=== PATIENT | female | born 1940 | race Caucasian/White ===

== ENCOUNTER → 2017-07-10 13:55 | Outpatient (CLI) | payer OTHER, SELFPAY ==
[2017-07-10 14:39] LABS: Add Manual Diff / Slide Review NO; Basophils Percent Auto 0.7 % (0-2); Eosinophils Percent Auto 0.8 % (2-4); Hematocrit 37.8 % (36-46); Hemoglobin 12.6 g/dL (12.0-16.0); Lymphocytes Percent Auto 25.9 % (25-40); Mean Corpuscular HGB Conc 33.3 % (30-36); Mean Corpuscular Hemoglobin 27.7 PG (26-34); Mean Corpuscular Volume 83.2 fL (80-100); Monocytes Percent Auto 11.3 % (3-14); Neutrophils Absolute Auto 5800 /uL (3000-5900); Neutrophils Percent Auto 61.3 % (50-75); Platelet Count 300 X10^3/uL (150-400); Red Blood Cell Count 4.55 X10^6/uL (4.0-5.2); Red Cell Distribution Width 13.7 % (11.6-14.8); White Blood Cell Count 9.4 X10^3/uL (4.5-11.0)
[2017-07-10 15:03] LABS: Alanine Aminotransferase 34 IU/L (9-52); Albumin 4.3 g/dL (3.5-5.0); Albumin Globulin Ratio 1.3 (1.0-2.8); Alkaline Phosphatase 55 U/L (38-126); Aspartate Aminotransferase 26 IU/L (14-36); BUN Creatinine Ratio 27.1 (6-22); Bilirubin Direct 0.3 mg/dL (0.0-0.4); Bilirubin Total 0.3 mg/dL (0.2-1.3); Calcium 9.4 mg/dL (8.4-10.2); Estimated Glomerular Filt Rate > 60.0 mL/min (>60); Globulin 3.3 g/dL (1.7-4.1); Glucose 115 mg/dL (80-110); HEMOLYSIS < 15 (0-50); Sodium 139 mmol/L (137-145); Total Protein 7.6 g/dL (6.3-8.2)
[2017-07-10 15:40] LABS: TSH w/ Reflex to FT4 0.98 uIU/mL (0.47-4.68)
[2017-07-12 16:43] LABS: Immunoglobulin A 174 mg/dL (81-463)
[2017-07-15 15:30] LABS: Result 5
== END ==
PROVIDERS: PCP Internal Medicine; Visit Provider Physician Assistant
DX: R19.7 Diarrhea, unspecified (principal)
CPT/HCPCS: 36415; 80053; 82248; 82784; 83516; 84443; 85025

== ENCOUNTER → 2017-09-05 14:38 | Outpatient (CLI) | payer OTHER, SELFPAY ==
--- NOTE | 2017-09-05 | DI.MG.S_ITS ---
BILATERAL DIGITAL SCREENING MAMMOGRAM 3D/2D WITH CAD: 09/05/2017 CLINICAL: Routine screening. Family history of breast cancer. Comparison is made to exams dated: 08/05/2016 mammogram, 07/14/2015 mammogram, and 07/11/2014 mammogram - [facility]. There are scattered fibroglandular elements in both breasts. Current study was also evaluated with a Computer Aided Detection (CAD) system. There is architectural distortion in the right breast anterior depth central to the nipple seen on the mediolateral oblique view only. No other significant masses, calcifications, or other findings are seen in either breast. IMPRESSION: INCOMPLETE: NEEDS ADDITIONAL IMAGING EVALUATION The architectural distortion in the right breast is indeterminate. Additional views with possible ultrasound are recommended. This exam was interpreted at Station ID: [id number]. NOTE: For mammograms, a report in lay terms will be sent to the patient. Approximately 15% of breast malignancies will not be visualized mammographically. In the management of a palpable breast mass, a negative mammogram must not discourage biopsy of a clinically suspicious lesion. Electronically Signed By: Tereso neal/michael:09/05/2017 16:00:59 copy to: Valarie Cantor letter sent: Additional Imaging Needed ACR BI-RADS Category 0: Incomplete 3340F
== END ==
PROVIDERS: PCP Internal Medicine; Visit Provider Internal Medicine
DX: Z12.31 Encounter for screening mammogram for malignant neoplasm of breast (principal); Z80.3 Family history of malignant neoplasm of breast
CPT/HCPCS: 77063; 77067

== ENCOUNTER → 2017-09-12 10:29 | Outpatient (CLI) | payer OTHER, SELFPAY ==
--- NOTE | 2017-09-12 | DI.MG.S_ITS ---
UNILATERAL RIGHT DIGITAL DIAGNOSTIC MAMMOGRAM 3D/2D WITH ADDITIONAL VIEWS: 09/12/2017 CLINICAL: Additional evaluation requested from prior study. Comparison is made to exams dated: 09/05/2017 mammogram, 08/05/2016 mammogram, and 07/14/2015 mammogram - [facility]. There are scattered fibroglandular elements in the right breast. The architectural distortion in the right breast anterior depth central to the nipple seen on the mediolateral oblique view only is not seen in additional views. No other significant masses or calcifications are seen in the breast. IMPRESSION: BENIGN There is no mammographic evidence of malignancy. A 1 year screening mammogram is recommended. This exam was interpreted at Station ID: [id number]. NOTE: For mammograms, a report in lay terms will be sent to the patient. Approximately 15% of breast malignancies will not be visualized mammographically. In the management of a palpable breast mass, a negative mammogram must not discourage biopsy of a clinically suspicious lesion. Electronically Signed By: Kellie Crowe M.D. lk/:09/12/2017 10:50:45 copy to: Valarie Cantor letter sent: Normal Exam ACR BI-RADS Category 2: Benign Finding(s) 3342F
== END ==
PROVIDERS: Family Provider Internal Medicine; PCP Internal Medicine; Visit Provider Internal Medicine
DX: R92.8 Other abnormal and inconclusive findings on diagnostic imaging of breast (principal)
CPT/HCPCS: 77065; G0279

== ENCOUNTER → 2017-10-06 09:03 | Outpatient (CLI) | payer OTHER, SELFPAY ==
[2017-10-06 11:00] LABS: Free T4, Direct Thyroxine 0.83 ng/dL (0.78-2.19)
[2017-10-06 11:14] LABS: Thyroid Stimulating Hormone 0.51 uIU/mL (0.47-4.68)
[2017-10-08 16:22] LABS: Triiodothyronine T3 Total 92 ng/dL (76-181)
== END ==
PROVIDERS: Family Provider Internal Medicine; PCP Internal Medicine; Visit Provider Internal Medicine
DX: E06.3 Autoimmune thyroiditis (principal)
CPT/HCPCS: 36415; 84439; 84443; 84480

== ENCOUNTER → 2017-10-13 13:17 | Outpatient (CLI) | payer OTHER, SELFPAY ==
--- NOTE | 2017-10-13 | DI.MRI.S_ITS ---
PROCEDURE: MR BRAIN (IAC) WWO CON INDICATIONS: IAC bilateral hearing loss, right greater than left TECHNIQUE: Noncontrast sagittal T1 spin echo, axial FLAIR, axial gradient echo, axial diffusion and ADC through the brain. Axial thin-slice 3D CISS, coronal TruFISP, axial T1 spin echo with fat saturation through the internal auditory canals. After the administration of contrast, thin slice axial and coronal T1 spin echo with fat saturation through the internal auditory canals, and axial T1 spin echo with fat saturation through the brain. COMPARISON: None. FINDINGS: Image quality: Excellent. Cerebellopontine angles: No cerebellopontine angle masses. Inner ear structures appear normally formed. No suspicious enhancement in the internal auditory canal or along the course of the 7th cranial nerve. CSF spaces: Ventricles are normal in size and shape. No extra-axial fluid collections. Basal cisterns are patent. Brain: No intracranial bleeds or mass effects. Almaguer-white matter interface is intact. No abnormal intracranial enhancement. Scattered bright flair signal changes are present in the deep white matter bilaterally. Diffusion weighted images demonstrate no acute ischemic insults. Brainstem appears normal. Normal intravascular flow voids are present. Skull and face: Calvarial marrow signal is normal. Orbits appear normal. Sinuses: Sinuses and mastoids are clear. IMPRESSION: 1. No evidence of acoustic neurinomas 2. No acute intracranial abnormality. No abnormal enhancement. 3. Mild age related small vessel chronic ischemic changes in the deep white matter bilaterally. Dictated by: Don Julian M.D. on 10/13/2017 at 16:54 Approved by: Don Julian M.D. on 10/13/2017 at 17:01
[2017-10-13 14:00] LABS: BUN Creatinine Ratio 24.4 (6-22); Blood Urea Nitrogen 22 mg/dL (7-17); Estimated Glomerular Filt Rate > 60.0 mL/min (>60)
== END ==
PROVIDERS: Family Provider Internal Medicine; PCP Internal Medicine; Visit Provider Otolaryngology
DX: H90.3 Sensorineural hearing loss, bilateral (principal); Z01.812 Encounter for preprocedural laboratory examination; H61.899 Other specified disorders of external ear, unspecified ear
CPT/HCPCS: 36415; 70553; 82565; 84520; A9579

== ENCOUNTER → 2018-07-16 07:54 | Outpatient (CLI) | payer OTHER, SELFPAY ==
--- NOTE | 2018-07-16 | DI.RAD.S_ITS ---
PROCEDURE: XR CHEST 2V INDICATIONS: COUGH TECHNIQUE: 2 views of the chest were acquired. COMPARISON: [facility], , CHEST 2 VIEW, 06/14/2014, 11:52. FINDINGS: Surgical changes and devices: None. Lungs and pleura: Lungs are clear. No pleural effusions or pneumothorax. Mediastinum: Mediastinal contours are normal. Heart size is normal. Bones and chest wall: No suspicious bony abnormalities. Soft tissues appear unremarkable. IMPRESSION: No acute cardiopulmonary pathology. Dictated by: Emmett Sarah M.D. on 07/16/2018 at 13:28 Approved by: Emmett Sarah M.D. on 07/16/2018 at 13:28
[2018-07-16 08:24] LABS: Add Manual Diff / Slide Review NO; Basophils Absolute Auto 100 /uL (0-100); Basophils Percent Auto 0.8 % (0-2); Eosinophils Absolute Auto 200 /uL (0-450); Eosinophils Percent Auto 2.8 % (2-4); Hematocrit 39.4 % (36-46); Hemoglobin 13.4 g/dL (12.0-16.0); Lymphocytes Absolute Auto 2200 /uL (1100-4500); Lymphocytes Percent Auto 27.5 % (25-40); Mean Corpuscular Hemoglobin 28.8 PG (26-34); Mean Corpuscular Volume 84.5 fL (80-100); Monocytes Absolute Auto 1100 /uL (0-900); Monocytes Percent Auto 14.3 % (3-14); Neutrophils Absolute Auto 4300 /uL (1500-7000); Neutrophils Percent Auto 54.6 % (50-75); Platelet Count 250 X10^3/uL (150-400); Red Blood Cell Count 4.67 X10^6/uL (4.0-5.2); Red Cell Distribution Width 13.3 % (11.6-14.8); White Blood Cell Count 7.8 X10^3/uL (4.5-11.0)
[2018-07-16 08:43] LABS: Alanine Aminotransferase 26 IU/L (9-52); Aspartate Aminotransferase 27 IU/L (14-36); Blood Urea Nitrogen 20 mg/dL (7-17); Calcium 9.5 mg/dL (8.4-10.2); Carbon Dioxide 29 mmol/L (22-32); Chloride 101 mmol/L (98-107); Cholesterol 183 mg/dL (140-199); Estimated Glomerular Filt Rate > 60.0 mL/min (>60); Glucose 100 mg/dL (80-110); HDL Cholesterol 58 mg/dL (40-60); HEMOLYSIS < 15 (0-50); LDL Cholesterol Calculated 111 mg/dL (<100); Potassium 4.4 mmol/L (3.4-5.1); Sodium 139 mmol/L (137-145); Triglycerides 69 mg/dL (35-150)
[2018-07-16 09:12] LABS: TSH w/ Reflex to FT4 1.11 uIU/mL (0.47-4.68)
[2018-07-16 09:57] LABS: Vitamin B12 712 pg/mL (239-931)
== END ==
PROVIDERS: PCP Internal Medicine; Visit Provider Internal Medicine
DX: E78.00 Pure hypercholesterolemia, unspecified (principal); R53.82 Chronic fatigue, unspecified; R05 Cough
CPT/HCPCS: 36415; 71046; 80048; 80061; 82607; 84443; 84450; 84460; 85025

== ENCOUNTER → 2018-07-22 13:34 | Outpatient (CLI) | payer OTHER, SELFPAY | PROVIDERS: PCP Internal Medicine; Visit Provider Internal Medicine | DX: M85.852 Other specified disorders of bone density and structure, left thigh (principal); Z78.0 Asymptomatic menopausal state; E07.9 Disorder of thyroid, unspecified; Z82.62 Family history of osteoporosis | CPT/HCPCS: 77080 ==

== ENCOUNTER → 2018-09-17 08:33 | Outpatient (CLI) | payer OTHER, SELFPAY ==
--- NOTE | 2018-09-17 | DI.MG.S_ITS ---
BILATERAL DIGITAL SCREENING MAMMOGRAM 3D/2D WITH CAD: 09/17/2018 CLINICAL: Routine screening. Family history of breast cancer. Comparison is made to exams dated: 09/05/2017 mammogram, 08/05/2016 mammogram, 07/14/2015 mammogram, 09/12/2017 mammogram, 07/11/2014 mammogram, and 07/09/2013 mammogram - [facility]. The tissue of both breasts is heterogeneously dense. This may lower the sensitivity of mammography. Current study was also evaluated with a Computer Aided Detection (CAD) system. There are benign calcifications in the right breast. There is a mole marker on the left breast. No significant masses, calcifications, or other findings are seen in either breast. There has been no significant interval change. IMPRESSION: There is no mammographic evidence of malignancy. A 1 year screening mammogram is recommended. This exam was interpreted at Station ID: [id number]. NOTE: For mammograms, a report in lay terms will be sent to the patient. Approximately 15% of breast malignancies will not be visualized mammographically. In the management of a palpable breast mass, a negative mammogram must not discourage biopsy of a clinically suspicious lesion. Electronically Signed By: Fredrick castano/michael:09/17/2018 12:58:52 copy to: Darrel Payan letter sent: Normal Exam ACR BI-RADS Category 2: Benign Finding(s) 3342F
== END ==
PROVIDERS: PCP Internal Medicine; Visit Provider Internal Medicine
DX: Z12.31 Encounter for screening mammogram for malignant neoplasm of breast (principal); Z80.3 Family history of malignant neoplasm of breast
CPT/HCPCS: 77063; 77067

== ENCOUNTER → 2018-11-26 14:08 | Outpatient (CLI) | payer OTHER, SELFPAY ==
[2018-11-26 15:44] LABS: Free T4, Direct Thyroxine 0.93 ng/dL (0.78-2.19)
[2018-11-26 15:58] LABS: Thyroid Stimulating Hormone 0.68 uIU/mL (0.47-4.68)
[2018-11-28 15:34] LABS: Triiodothyronine T3 Total 162 ng/dL (76-181)
== END ==
PROVIDERS: PCP Internal Medicine; Visit Provider Internal Medicine
DX: E06.3 Autoimmune thyroiditis (principal)
CPT/HCPCS: 36415; 84439; 84443; 84480

== ENCOUNTER → 2019-05-14 15:04 | Outpatient (CLI) | payer OTHER, SELFPAY ==
[2019-05-14 16:22] LABS: Free T4, Direct Thyroxine 0.86 ng/dL (0.78-2.19)
[2019-05-15 06:29] LABS: Triiodothyronine T3 Total 150 ng/dL (71-180)
== END ==
PROVIDERS: PCP Internal Medicine; Referring Provider Internal Medicine; Visit Provider Internal Medicine
DX: E06.3 Autoimmune thyroiditis (principal)
CPT/HCPCS: 36415; 84439; 84443; 84480

== ENCOUNTER → 2019-08-12 08:14 | Outpatient (CLI) | payer OTHER, SELFPAY ==
--- NOTE | 2019-08-12 | DI.RAD.S_ITS ---
PROCEDURE: XR THORACIC SPINE 2V INDICATIONS: Kyphosis of thoracic region TECHNIQUE: A 3 views of the thoracic spine were acquired. COMPARISON: None. FINDINGS: Bones: No fractures or dislocations. Multiple small bridging osteophytes are seen along the thoracic spine with additional mild anterior longitudinal ligament calcifications. The morphology of the vertebral bodies is not suggestive of superimposed definite ankylosing spondylitis and no compression fracture is found. No suspicious bony lesions. 12 pairs of ribs are noted, and appear intact where visualized. Soft tissues: No paravertebral stripe thickening. IMPRESSION: No compression fracture found. Multiple small bridging osteophytes. DISH pattern, ankylosing spondylitis is not likely present. Dictated by: Gregory Wright M.D. on 08/12/2019 at 8:57 Approved by: Gregory Wright M.D. on 08/12/2019 at 8:59
== END ==
PROVIDERS: PCP Internal Medicine; Referring Provider Internal Medicine; Visit Provider Internal Medicine
DX: M40.204 Unspecified kyphosis, thoracic region (principal)
CPT/HCPCS: 72070

== ENCOUNTER → 2019-08-16 07:33 | Outpatient (CLI) | payer OTHER, SELFPAY ==
[2019-08-16 09:22] LABS: Cholesterol 228 mg/dL (140-199); HDL Cholesterol 50 mg/dL (40-60); LDL Cholesterol Calculated 151 mg/dL (<100); Triglycerides 137 mg/dL (35-150)
[2019-08-16 19:57] LABS: Alanine Aminotransferase 19 IU/L (<35); Albumin 4.1 g/dL (3.5-5.0); Albumin Globulin Ratio 1.3 (1.0-2.8); Alkaline Phosphatase 58 U/L (38-126); Aspartate Aminotransferase 27 IU/L (14-36); BUN Creatinine Ratio 24.3 (6-22); Bilirubin Total 0.3 mg/dL (0.2-1.3); Blood Urea Nitrogen 18 mg/dL (7-17); Calcium 9.7 mg/dL (8.4-10.2); Carbon Dioxide 26 mmol/L (22-32); Chloride 103 mmol/L (98-107); Estimated Glomerular Filt Rate > 60.0 mL/min (>60); Globulin 3.1 g/dL (1.7-4.1); Glucose 97 mg/dL (80-110); HEMOLYSIS < 15 (0-50); Potassium 4.6 mmol/L (3.4-5.1); Sodium 137 mmol/L (137-145); Total Protein 7.2 g/dL (6.3-8.2)
== END ==
PROVIDERS: PCP Internal Medicine; Referring Provider Internal Medicine; Visit Provider Internal Medicine
DX: M85.80 Other specified disorders of bone density and structure, unspecified site (principal); E78.5 Hyperlipidemia, unspecified
CPT/HCPCS: 36415; 80053; 80061

== ENCOUNTER → 2019-10-06 11:56 | Outpatient (CLI) | payer OTHER, SELFPAY | PROVIDERS: PCP Internal Medicine; Referring Provider Internal Medicine; Visit Provider Internal Medicine | DX: Z12.31 Encounter for screening mammogram for malignant neoplasm of breast (principal); Z53.8 Procedure and treatment not carried out for other reasons ==

== ENCOUNTER → 2019-10-27 13:28 | Outpatient (CLI) | payer OTHER, SELFPAY ==
--- NOTE | 2019-10-27 13:44 | DI.MG.S_ITS ---
Patient Name: ERICA SOW date: 1940 Sex: F Attending Physician: Den Indications: Date: 10/27/2019 13:31 At the request of: SKYLA TOWNSEND Procedure: MM diagnostic mammo BI BILATERAL DIGITAL DIAGNOSTIC MAMMOGRAM 3D/2D: 10/27/2019 CLINICAL: Lump left breast. Comparison is made to exams dated: 09/17/2018 mammogram, 09/12/2017 mammogram, 09/05/2017 mammogram, and 08/05/2016 mammogram - [facility]. The tissue of both breasts is heterogeneously dense. This may lower the sensitivity of mammography. There is a possible 1.6 cm focal asymmetry in the left breast at 7 o'clock anterior depth which appears less conspicuous after spot compression on today's study. No other significant masses, calcifications, or other findings are seen in either breast. IMPRESSION: INCOMPLETE: NEEDS ADDITIONAL IMAGING EVALUATION The possible 1.6 cm focal asymmetry in the left breast resembles fibroglandular tissue and is indeterminate. An ultrasound is recommended for further evaluation and is scheduled to immediately follow this study. There is no abnormality seen in the left breast to correspond with the area of clinical concern and palpable abnormality indicated by triangular marker at 5 o'clock in the anterior depth, however, ultrasound is recommended which is scheduled to immediately follow this examination. This exam was interpreted at Station ID: [id number]. NOTE: For mammograms, a report in lay terms will be sent to the patient. Approximately 15% of breast malignancies will not be visualized mammographically. In the management of a palpable breast mass, a negative mammogram must not discourage biopsy of a clinically suspicious lesion. Electronically Signed By: Alex Martin M.D. aty/:10/27/2019 14:58:48 Continued Report - Page 2 of 2 Patient Name: ERICA SOW date: 1940 Sex: F Attending Physician: Den Indications: Date: 10/27/2019 13:31 At the request of: SKYAL TOWNSEND Procedure: MM diagnostic mammo BI ACR BI-RADS Category 0: Incomplete 3340F
--- NOTE | 2019-10-27 14:35 | DI.US.S_ITS ---
Patient Name: ERICA SOW date: 1940 Sex: F Attending Physician: Den Indications: Date: 10/27/2019 14:31 At the request of: SKYLA TOWNSEND Procedure: US breast LT limited ULTRASOUND OF LEFT BREAST: 10/27/2019 CLINICAL: Left breast palpable lump. Comparison is made to exams dated: 10/27/2019 mammogram, 09/17/2018 mammogram, 09/05/2017 mammogram, 08/05/2016 mammogram, 07/14/2015 mammogram, and 07/11/2014 mammogram - [facility]. Color flow and real-time ultrasound of the left breast were performed. Almaguer scale images of the real-time examination were reviewed. No significant abnormalities were seen sonographically in the left breast. IMPRESSION: BENIGN There is no sonographic evidence of malignancy. There is no abnormality seen in the left breast to correspond with the area of clinical concern and palpable abnormality indicated by triangular marker at 5 o'clock in the anterior depth, however, clinical followup is recommended for persistent or worsening symptoms. There is no sonographic abnormality in the left breast at the 7 o'clock position, middle depth to correlate with possible focal asymmetry seen on today's mammogram. This is likely normal dense fibroglandular tissue and probably benign. A follow up left breast mammogram with possible ultrasound in 6 months is recommended. Findings and recommendations were conveyed to the patient during today's visit. This exam was interpreted at Station ID: [id number]. Electronically Signed By: Alex Martin M.D. aty/:10/27/2019 15:03:16 letter sent: Followup Recommended Continued Report - Page 2 of 2 Patient Name: ERICA SOW date: 1940 Sex: F Attending Physician: Den Indications: Date: 10/27/2019 14:31 At the request of: SKYLA TOWNSEND Procedure: US breast LT limited Ultrasound BI-RADS: 2 Benign
== END ==
PROVIDERS: PCP Internal Medicine; Visit Provider Internal Medicine
DX: R92.8 Other abnormal and inconclusive findings on diagnostic imaging of breast (principal); N63.20 Unspecified lump in the left breast, unspecified quadrant
CPT/HCPCS: 76642; 77066; G0279

== ENCOUNTER → 2019-11-02 12:07 | Outpatient (CLI) | payer OTHER, SELFPAY ==
--- NOTE | 2019-11-02 | DI.MRI.S_ITS ---
PROCEDURE: MR HEAD/BRAIN WO CON INDICATIONS: Other amnesia TECHNIQUE: Non-contrast axial T1 spin echo, axial T2 fast spin echo, sagittal and axial FLAIR, coronal T2 fast spin echo, axial gradient echo, axial diffusion and ADC through the brain. COMPARISON: [facility], MR, MR BRAIN ([facility]) WWO CON, 10/13/2017, 15:11. FINDINGS: Image quality: Excellent. CSF spaces: Ventricles appear symmetric in size and shape. Basal cisterns are patent. No extra-axial fluid collections. Brain: No intracranial bleeds or mass effects. There is cerebral volume loss for age. There are periventricular and deep white matter chronic small vessel ischemic changes. Brainstem appears normal. Diffusion-weighted images show no acute ischemic insults. No chronic ischemic insults. Normal intravascular flow voids are present. Skull and face: Calvarial bone marrow is normal in signal. Orbits are normal. Note is made of bilateral lens replacements. Sinuses: Sinuses and mastoids are clear. Moderate rightward nasal septal deviation is incidentally noted. There is a left trae bullosa seen, with mucosal thickening seen within it. IMPRESSION: No imaging explanation is found for this patient's presenting symptoms. Note is made of age-appropriate brain parenchymal volume loss and chronic small vessel ischemic changes. No findings of acute or subacute infarction can be seen. Dictated by: Kelvin Reddy M.D. on 11/02/2019 at 11:49 Approved by: Kelvin Reddy M.D. on 11/02/2019 at 11:51
== END ==
PROVIDERS: PCP Internal Medicine; Referring Provider Internal Medicine; Visit Provider Internal Medicine
DX: R41.3 Other amnesia (principal)
CPT/HCPCS: 70551

== ENCOUNTER → 2019-12-15 10:18 | Outpatient (CLI) | payer OTHER, SELFPAY ==
[2019-12-15 12:05] LABS: Free T4, Direct Thyroxine 0.97 ng/dL (0.78-2.19)
[2019-12-15 12:18] LABS: Thyroid Stimulating Hormone 0.891 uIU/mL (0.47-4.68)
[2019-12-16 10:03] LABS: Triiodothyronine T3 Total 105 ng/dL (71-180)
== END ==
PROVIDERS: PCP Internal Medicine; Referring Provider Internal Medicine; Visit Provider Internal Medicine
DX: E06.3 Autoimmune thyroiditis (principal)
CPT/HCPCS: 36415; 84439; 84443; 84480

== ENCOUNTER → 2020-04-27 12:47 | Outpatient (CLI) | payer OTHER, SELFPAY ==
--- NOTE | 2020-04-27 12:51 | DI.MG.S_ITS ---
UNILATERAL LEFT DIGITAL DIAGNOSTIC MAMMOGRAM 3D/2D SHORT-TERM FOLLOW-UP: 04/27/2020 CLINICAL: Patient returns for a 6 month follow up of the left breast. Comparison is made to exams dated: 10/27/2019 mammogram, 09/17/2018 mammogram, and 09/05/2017 mammogram - [facility]. The tissue of left breast is heterogeneously dense. This may lower the sensitivity of mammography. No increasing asymmetry in the left breast at 5 o'clock in the anterior depth. This was location of previous palpable abnormality for the patient. There is a benign 1 cm oval low density asymmetry with an indistinct margin in the left breast at 7 o'clock middle depth. This is seen in additional views. This has been present for multiple years and has shown snf stability in size for over two years. No significant change in morphology. No other significant masses or calcifications are seen in the breast. IMPRESSION: BENIGN Asymmetry at 7:00 in the left breast is benign given emt intermediate stability. No developing asymmetry at 5:00. There is no mammographic evidence of malignancy. Return to annual mammogram screening schedule is recommended. Future imaging is recommended as follows: 10/24/2020 screening mammogram. Findings and recommendations were conveyed to the patient at time of exam. This exam was interpreted at Station ID: [id number]. NOTE: For mammograms, a report in lay terms will be sent to the patient. Approximately 15% of breast malignancies will not be visualized mammographically. In the management of a palpable breast mass, a negative mammogram must not discourage biopsy of a clinically suspicious lesion. Electronically Signed By: Toya buchanan/:04/27/2020 13:33:44 letter sent: Normal Exam ACR BI-RADS Category 2: Benign Finding(s) 3342F
== END ==
PROVIDERS: PCP Internal Medicine; Referring Provider Internal Medicine; Visit Provider Internal Medicine
DX: R92.8 Other abnormal and inconclusive findings on diagnostic imaging of breast (principal); N64.89 Other specified disorders of breast
CPT/HCPCS: 77065; G0279

== ENCOUNTER → 2020-11-06 10:47 | Outpatient (CLI) | payer OTHER, SELFPAY ==
[2020-11-06 12:47] LABS: COVID19 -Nasal RAPID Negative (Negative)
== END ==
PROVIDERS: PCP Internal Medicine; Referring Provider Nurse Practitioner Family; Visit Provider Nurse Practitioner Family
DX: R05 Cough (principal)
CPT/HCPCS: 87635

== ENCOUNTER → 2020-11-06 11:22 | Outpatient (CLI) | payer OTHER, SELFPAY ==
--- NOTE | 2020-11-06 11:24 | DI.RAD.S_ITS ---
PROCEDURE: XR CHEST 2V INDICATIONS: cough TECHNIQUE: 2 views of the chest were acquired. COMPARISON: [facility], CHEST 2 VIEW, 06/14/2014, 11:52. [facility], , XR CHEST 2V, 07/16/2018, 12:48. FINDINGS: Surgical changes and devices: None. Lungs and pleura: Lungs are clear. No pleural effusions or pneumothorax. Mediastinum: Mediastinal contours are normal. Heart size is normal. Bones and chest wall: No suspicious bony abnormalities. Accentuated thoracic kyphosis is seen. Soft tissues appear unremarkable. IMPRESSION: Unremarkable chest series for age, without focal infiltrates. Dictated by: Kelvin Reddy M.D. on 11/06/2020 at 10:52 Approved by: Kelvin Reddy M.D. on 11/06/2020 at 10:52
== END ==
PROVIDERS: PCP Internal Medicine; Referring Provider Nurse Practitioner Family; Visit Provider Nurse Practitioner Family
DX: R05 Cough (principal)
CPT/HCPCS: 71046; 87635

== ENCOUNTER → 2020-11-28 09:13 | Outpatient (CLI) | payer OTHER, SELFPAY ==
--- NOTE | 2020-11-28 | DI.MG.S_ITS ---
BILATERAL DIGITAL SCREENING MAMMOGRAM 3D/2D WITH CAD: 11/28/2020 CLINICAL: Routine screening. Family history of breast cancer. Comparison is made to exams dated: 04/27/2020 mammogram, 10/27/2019 mammogram, 09/17/2018 mammogram, 09/12/2017 mammogram, and 09/05/2017 mammogram - [facility]. The tissue of both breasts is heterogeneously dense. This may lower the sensitivity of mammography. Current study was also evaluated with a Computer Aided Detection (CAD) system. There are benign calcifications in both breasts. No significant masses, calcifications, or other findings are seen in either breast. There has been no significant interval change. IMPRESSION: BENIGN There is no mammographic evidence of malignancy. A 1 year screening mammogram is recommended. This exam was interpreted at Station ID: [id number]. NOTE: For mammograms, a report in lay terms will be sent to the patient. Approximately 15% of breast malignancies will not be visualized mammographically. In the management of a palpable breast mass, a negative mammogram must not discourage biopsy of a clinically suspicious lesion. Electronically Signed By: Thor spangler/michael:11/28/2020 11:49:30 letter sent: Normal Exam ACR BI-RADS Category 2: Benign Finding(s) 3342F
== END ==
PROVIDERS: PCP Internal Medicine; Referring Provider Internal Medicine; Visit Provider Internal Medicine
DX: Z12.31 Encounter for screening mammogram for malignant neoplasm of breast (principal); Z80.3 Family history of malignant neoplasm of breast
CPT/HCPCS: 77063; 77067

== ENCOUNTER → 2021-02-07 12:20 | Outpatient (CLI) | payer OTHER, SELFPAY ==
[2021-02-07 14:38] LABS: Alanine Aminotransferase 25 IU/L (<35); Albumin 4.6 g/dL (3.5-5.0); Albumin Globulin Ratio 1.2 (1.0-2.8); Alkaline Phosphatase 62 U/L (38-126); Aspartate Aminotransferase 28 IU/L (14-36); BUN Creatinine Ratio 24.1 (6-22); Bilirubin Total 0.4 mg/dL (0.2-1.3); Blood Urea Nitrogen 19 mg/dL (7-17); Calcium 10.2 mg/dL (8.4-10.2); Carbon Dioxide 32 mmol/L (22-32); Chloride 96 mmol/L (98-107); Estimated Glomerular Filt Rate > 60.0 mL/min (>60); Glucose 93 mg/dL (80-110); HEMOLYSIS < 15 (0-50); Potassium 4.7 mmol/L (3.4-5.1); Sodium 137 mmol/L (137-145); Total Protein 8.6 g/dL (6.3-8.2)
[2021-02-07 14:48] LABS: Free T4, Direct Thyroxine 1.15 ng/dL (0.78-2.19)
[2021-02-07 15:02] LABS: TSH w/ Reflex to FT4 2.52 uIU/mL (0.47-4.68)
[2021-02-08 17:59] LABS: Hep C Virus Ab w/Reflex Quant NEGATIVE s/c (NEGATIVE)
== END ==
PROVIDERS: PCP Internal Medicine; Referring Provider Internal Medicine; Visit Provider Internal Medicine
DX: E03.9 Hypothyroidism, unspecified (principal); Z11.59 Encounter for screening for other viral diseases
CPT/HCPCS: 36415; 80053; 84439; 84443; 86803

== ENCOUNTER → 2021-02-08 09:40 | Outpatient (CLI) | payer OTHER, SELFPAY ==
[2021-02-08 11:03] LABS: Cholesterol 272 mg/dL (140-199); HDL Cholesterol 57 mg/dL (40-60); LDL Cholesterol Calculated 196 mg/dL (<100); Triglycerides 93 mg/dL (35-150)
== END ==
PROVIDERS: PCP Internal Medicine; Referring Provider Internal Medicine; Visit Provider Internal Medicine
DX: E78.5 Hyperlipidemia, unspecified (principal); Z11.59 Encounter for screening for other viral diseases; E03.9 Hypothyroidism, unspecified
CPT/HCPCS: 36415; 80061

== ENCOUNTER 2021-03-13 10:48 | Emergency (ER) | payer OTHER, SELFPAY ==
[2021-03-13 11:00] VITALS: BP 137/63; PULSE 58; RESP 14; TEMP 37.7; O2SAT 99; BMI 23.8
[2021-03-13 11:21] LABS: COVID19 -Nasal RAPID POSITIVE (Negative)
--- NOTE | 2021-03-13 11:41 | ED_ITS ---
HPI - URI/Sore Throat General Chief Complaint: Upper Respiratory Symptoms Stated Complaint: Thinks covid- coughing, congestion, body aches Time Seen by Provider: 03/13/21 11:32 Source: patient Mode of arrival: Ambulatory History of Present Illness HPI Narrative: Patient here with . Complaint 3 days of dry cough cold congestion. Body aches and chills. Patient is COVID vaccinated. Denies any dyspnea. Home oxygen sensor varies between 92% to 97%. Patient gets very tired at home. When ambulating. Here clear lung sounds speaking full sentences 97% room air. No nausea vomiting or diarrhea. Related Data Home Medications Medication Instructions Recorded Confirmed [CALCIUM + D] 1 tab PO QDAY #0 12/13/10 11/06/20 [MAGNESIUM] 1 tab PO QDAY #0 12/13/10 11/06/20 [VITAMIN E] 1 cap PO QDAY #0 12/13/10 11/06/20 [PREVACID] 20 PO PRN #0 08/27/11 11/06/20 B poailtz-K-nxocx acid-Zn 500 1 ea PO #0 04/20/16 11/06/20 mg-400 mcg-15 mg tablet (Linda B Strong) glucosamine 1 ea PO #0 04/20/16 11/06/20 sulfate-methylsulfonylmethane 250 mg-250 mg capsule levothyroxine 75 mcg tablet 75 mcg PO QAM #0 02/12/17 11/06/20 (Synthroid) biotin 1 mg capsule 1 mg PO DAILY 10/20/17 11/06/20 coenzyme Q10 75 mg capsule (Ultra 75 mg PO DAILY 10/20/17 11/06/20 CoQ10) escitalopram oxalate 5 mg tablet 5 mg PO DAILY 10/20/17 11/06/20 (Lexapro) Previous Rx's Medication Instructions Recorded alprazolam 0.25 mg tablet 0.25 mg PO BID #60 tab 12/09/16 estradiol-norethindrone acet 0.5 1 tab PO Q DAY #84 tab 11/25/18 mg-0.1 mg tablet (Activella) benzonatate 100 mg capsule 100 mg PO BID PRN #20 cap 11/06/20 (Tessalon Perles) albuterol sulfate 90 mcg/actuation 2 inhalation INHALATION QID PRN 03/13/21 aerosol inhaler (Ventolin HFA) #6.7 gram benzonatate 100 mg capsule 100 mg PO TID PRN #20 cap 03/13/21 Allergies Allergy/AdvReac Type Severity Reaction Status Date / Time ciprofloxacin [From Cipro ] Allergy Mild unknown Verified 03/13/21 11:04 Review of Systems Review of Systems Narrative: GENERAL: Denies chills, fatigue, malaise, negative for fever, sweats. HEENT: Denies sinus pain, ear pain, sore throat RESPIRATORY: Denies dyspnea, positive for cough CARDIOVASCULAR: Denies chest pain, palpitations GASTROINTESTINAL: Denies nausea, vomiting, abdominal pain : Denies dysuria, frequency, hematuria MUSCULOSKELETAL: Positive for muscle or bony pain SKIN: Denies rash, skin lesions NEUROLOGIC: Denies weakness, numbness ROS Unobtainable: All systems reviewed & are unremarkable except as noted in HPI and below Patient History Medical History Actinic keratosis (2014) Alopecia Anxiety Chicken pox Chronic cough Colon polyps Cough Hemorrhoids Herpes Hypothyroidism IBS (irritable bowel syndrome) Left wrist fracture Measles Migraines Ayala's neuroma of left foot (1999) Mumps Osteoarthritis Psoriasis (1956) RLS (restless legs syndrome) Shoulder pain (2014) Surgical History Anesthesia S/P wrist surgery (1999) Status post appendectomy (1994) Status post bunionectomy (1999) Status post left foot surgery (1999) Status post surgery (04/04/17) Family History Father Prostate cancer Stroke Heart attack Grandfather Heart disease Grandmother Diabetes mellitus Mother CAD (coronary artery disease) Grandfather No problems noted. Grandmother Heart attack Sister No problems noted. Social History Smoking Status: Never smoker Smoking Status: Never smoker alcohol intake frequency: holidays/special occasions only Substance Use Type: does not use Exam Narrative Exam Narrative: GENERAL: in no distress, not toxic not dyspneic HEAD: Normocephalic. EYES: Pupils equal round No scleral icterus. NECK: Trachea midline. CARDIOVASCULAR: Regular rate and rhythm without murmurs RESPIRATORY: Clear to auscultation. Breath sounds equal bilaterally. No wheezes, rales, or rhonchi. Speaking full sentences GASTROINTESTINAL: Abdomen soft, non-tender EXTREMITIES: No gross deformities. BACK: No flank tenderness. NEURO: AOx4. SKIN: Warm and dry PSYCH: Not anxious, is cooperative Initial Vital Signs Initial Vital Signs: Vital Signs Temperature 99.8 F H 03/13/21 11:00 Pulse Rate 58 L 03/13/21 11:00 Respiratory Rate 14 03/13/21 11:00 Blood Pressure 137/63 03/13/21 11:00 Pulse Oximetry 99 03/13/21 11:00 Course Course Course Narrative: No new issues during course of stay Orders Ordered: Discontinued Medications Albuterol (Albuterol Hfa Mdi 60 Puff/8 Gm Inhaler) 2 puff INH NOW ONE Stop: 03/13/21 11:42 Last Admin: 03/13/21 12:06 Dose: Not Given Documented by: VIJI Benzonatate (Benzonatate 100 Mg Capsule) 100 mg PO NOW ONE Stop: 03/13/21 11:42 Last Admin: 03/13/21 12:12 Dose: 100 mg Documented by: CAROLINA Reevaluation(s) Reevaluation #1: Spoke with patient and results. No imaging or blood work indicated this time. Vital signs reassuring as well as exam. Return precautions reviewed with them. They agree with treatment plan him prescription for Tessalon Perles as well as inhaler, home [id number] cough medication has not been effective. She is unable to sleep at night Time: 11:44 Vital Signs Vital signs: Vital Signs - 8 hr 03/13/21 11:00 Temperature 99.8 F H Pulse Rate 58 L Respiratory Rate 14 Blood Pressure 137/63 Pulse Oximetry 99 MDM - URI/Sore Throat Differential Diagnosis Differential diagnosis: Likely upper respiratory infection, viral infection and other (COVID infection) Lab Data Labs: Lab Results 03/13/21 Range/Units 11:03 SARS-CoV-2 (PCR) Positive H (Negative) MDM Narrative Medical decision making narrative: Appropriate for discharge home. Vital signs and exam reassuring. No blood work or imaging indicated this time. Clear lung sounds and no hypoxia or tachypnea. Return precautions reviewed with them. They desire discharge home. Not toxic or dyspneic at discharge. Discharge Plan Departure Patient Disposition: Home Clinical Impression: COVID-19 Instructions: DI for COVID-19 (Suspected or Confirmed ) Activity Restrictions/Additional Instructions: Keep well hydrated. See family doctor in a week for recheck. You must quara ntine 10 days from 1st day of symptoms. Return if worse if any questions or concerns or for any trouble breathing. Use inhaler 2 puffs every 4 hours as needed for cough Prescriptions: New benzonatate 100 mg capsule 100 mg PO TID PRN (Reason: cough) Qty: 20 0RF albuterol sulfate [Ventolin HFA] 90 mcg/actuation HFA aerosol inhaler 2 inhalation INHALATION QID PRN (Reason: shortness of breath or wheezing) Qty: 6.7 0RF No Action benzonatate [Tessalon Perles] 100 mg capsule 100 mg PO BID PRN (Reason: cough) Qty: 20 0RF [MAGNESIUM] 1 tab PO QDAY Qty: 0 0RF [VITAMIN E] 1 cap PO QDAY Qty: 0 0RF [CALCIUM + D] 1 tab PO QDAY Qty: 0 0RF [PREVACID] 20 PO PRN Qty: 0 0RF glucosamine sulfate-msm 1 EACH capsule 1 ea PO Qty: 0 0RF B aldihjc-G-wliwj acid-Zn [Linda B Strong] 1 EACH tablet 1 ea PO Qty: 0 0RF alprazolam 0.25 MG tablet 0.25 mg PO BID Qty: 60 0RF levothyroxine [Synthroid] 75 MCG tablet 75 mcg PO QAM Qty: 0 0RF estradiol-norethindrone acet [Activella] 0.5-0.1 mg tablet 1 tab PO Q DAY Qty: 84 1RF Rx Instructions: As directed. Please call for an appointment prior to more fills. biotin 1 mg capsule 1 mg PO DAILY 0RF escitalopram oxalate [Lexapro] 5 mg tablet 5 mg PO DAILY 0RF coenzyme Q10 [Ultra CoQ10] 75 mg capsule 75 mg PO DAILY 0RF Referrals: Michaelle Crenshaw MD [Primary Care Provider] -
[2021-03-13] MEDS: BENZONATATE 100 MG CAPSULE PO (12:12)
[2021-03-13 12:23] VITALS: BP 120/66; PULSE 81; RESP 17; O2SAT 99
== END 2021-03-13 12:25 | disposition home or self-care (01) ==
PROVIDERS: Emergency Provider Emergency Medicine; PCP Internal Medicine
DX: U07.1 COVID-19 (principal)
CPT/HCPCS: 87635; 99283; C9803; A9270

== ENCOUNTER → 2021-12-14 10:07 | Outpatient (CLI) | payer OTHER, SELFPAY ==
--- NOTE | 2021-12-14 10:09 | DI.MG.S_ITS ---
BILATERAL DIGITAL SCREENING MAMMOGRAM 3D/2D WITH CAD: 12/14/2021 CLINICAL: Routine screening. Family history of breast cancer. Comparison is made to exams dated: 11/28/2020 mammogram, 10/27/2019 mammogram, and 09/17/2018 mammogram - [facility]. Both breasts are heterogeneously dense, which may obscure small masses (category c / 51-75% glandular tissue). Current study was also evaluated with a Computer Aided Detection (CAD) system. There are benign calcifications in both breasts. No significant masses, calcifications, or other findings are seen in either breast. There has been no significant interval change. IMPRESSION: BENIGN There is no mammographic evidence of malignancy. A 1 year screening mammogram is recommended. Based on the Tyrer Cuzick model (a risk assessment model) the patient's lifetime risk is 4.6% and her 10 year risk is 0.0%. According to the ACR, ACS, and NCCN guidelines, an annual breast MRI exam along with mammogram is recommended if the patient's lifetime risk is 20% or greater. This exam was interpreted at Station ID: [id number]. NOTE: For mammograms, a report in lay terms will be sent to the patient. Approximately 15% of breast malignancies will not be visualized mammographically. In the management of a palpable breast mass, a negative mammogram must not discourage biopsy of a clinically suspicious lesion. Electronically Signed By: Toya buchanan/michael:12/14/2021 12:10:57 letter sent: Normal Exam ACR BI-RADS Category 2: Benign Finding(s) 3342F
== END ==
PROVIDERS: Referring Provider Internal Medicine; Visit Provider Internal Medicine
DX: Z12.31 Encounter for screening mammogram for malignant neoplasm of breast (principal)
CPT/HCPCS: 77063; 77067; 87045; 87899

== ENCOUNTER → 2022-03-05 12:44 | Outpatient (CLI) | payer OTHER, SELFPAY | PROVIDERS: Referring Provider Registered Nurse; Visit Provider Registered Nurse | DX: R19.7 Diarrhea, unspecified (principal) | CPT/HCPCS: 87045; 87899 ==

== ENCOUNTER → 2022-07-09 10:29 | Outpatient (CLI) | payer OTHER, SELFPAY ==
--- NOTE | 2022-07-09 10:54 | DI.DEXA.S_ITS ---
Bone Density Report Name: ERICA GALEANA Age: 82 Sex: Female Ethnicity: White Date of : 1940 Indication: osteopenia; Referring Provider: SKYLA TOWNSEND Study: Bone densitometry was performed. Exam Date: July 09, 2022 Accession number: [id number] Bone Density: Region BMD T-score Z-score Classification AP Spine(L1, L2, L3) 0.819 -1.8 0.8 Osteopenia Femoral Neck (Left) 0.539 -2.8 -0.4 Osteoporosis Total Hip (Left) 0.690 -2.1 0.1 Osteopenia Femoral Neck (Right) 0.587 -2.4 0.0 Osteopenia Total Hip (Right) 0.700 -2.0 0.1 Osteopenia Total Hip Mean 0.695 -2.1 0.1 Osteopenia World Health Organization criteria for BMD impression classify patients as: Normal (T-score at or above -1.0), Osteopenia (T-score between -1.0 and -2.5), or Osteoporosis (T-score at or below -2.5). 10-year Fracture Risk: FRAX not reported because: Some T-score for Spine Total or Hip Total or Femoral Neck at or below -2.5 Previous Exams: -- Region Exam Age BMD T-score BMD Change BMD Change Date g/cm2 vs Baseline vs Previous -- AP Spine (L1-L3) 07/09/2022 82 0.819 -1.8 -0.048 (-5.5%)# -0.048 (-5.5%)# 07/22/2018 78 0.868 -1.4 Total Hip(Left) 07/09/2022 82 0.690 -2.1 -0.036 (-4.9%)# -0.036 (-4.9%)# 07/22/2018 78 0.726 -1.8 Total Hip(Right) 07/09/2022 82 0.700 -2.0 -0.034 (-4.7%)# -0.034 (-4.7%)# 07/22/2018 78 0.734 -1.7 -- *Denotes significance at 95% confidence level, LSC for AP Spine = 0.022 g/cm2, LSC for Total Hip = 0.027 g/cm2 # Denotes dissimilar scan types or analysis methods Impression: The patient has osteoporosis, based on the Left Femoral Neck T-score. No significant bone loss was observed. Discussion: INCREASED RISK OF FRACTURE. BONE DENSITY IS UNDESIRABLY LOW AT ONE OR MORE SKELETAL SITES, CONSISTENT WITH POSTMENOPAUSAL OSTEOPOROSIS. This patient's lowest T-score meets the World Health Organization's (WHO) criteria for osteoporosis at one or more sites (T-score -2.5 or below). In untreated patients, the risk of osteoporotic fracture increases approximately two-fold for each 1.0 SD decrease in T-score. Low bone density is not the only risk factor for fracture; also consider factors such as patient's age, frailty or poor health, risk of falling, risk of injury, previous osteoporotic fracture, family history of osteoporosis, cigarette smoking, low body weight, etc. Not everyone with low bone mineral density has osteoporosis; osteomalacia and other metabolic bone disorders should also be considered. Patients who have osteoporosis should be evaluated for specific diseases and conditions (secondary causes) that may cause or contribute to bone loss. The [place] Association [employer] Clinical Endocrinologists (AACE) and National Osteoporosis Foundation (NOF) recommend pharmacologic intervention for all postmenopausal women whose T-score is in this range. The patient should follow a healthful lifestyle (good nutrition with adequate calcium and vitamin D, and appropriate weight-bearing exercise). Follow-Up: Consider a repeat BMD and Vertebral Fracture Assessment (VFA) exam in 2 years or sooner if medically necessary, to reassess this patient's status. Reported by: ELLIE HERNANDEZ MD on 07/09/2022 11:13:00 AM.
== END ==
PROVIDERS: PCP Internal Medicine; Referring Provider Internal Medicine; Visit Provider Internal Medicine
DX: Z78.0 Asymptomatic menopausal state (principal); M81.0 Age-related osteoporosis without current pathological fracture
CPT/HCPCS: 77080

== ENCOUNTER 2022-07-24 07:32 | Day surgery (SDC) | payer OTHER, SELFPAY ==
--- NOTE | 2022-07-24 | PATH_ITS ---
[facility] Accession Number: [id number] No. of containers..01 Tissue . 01 Material submitted: . colon - RANDOM COLON BIOPSIES . 01 Diagnosis: Random Colon, Biopsies: Collagenous colitis. [facility] 07/31/2022 1203 Local . 01 Electronically signed: . Jon Ragsdale MD, PhD, Pathologist NPI- [id number] . 01 Gross description: . RANDOM COLON BIOPSIES: Received in formalin are 4 fragment(s) of looney, soft tissue measuring 0.1 x 0.1 x 0.1 cm to 0.3 x 0.2 x 0.2 cm submitted entirely in 1 cassette(s) /MAX 07/26/2022 0033 Local . 01 Pathologist provided ICD-10: R19.7, K52.89 . 01 CPT . 379424 Specimen Comment: A courtesy copy of this report has been sent to [phone] Performed at: 01 [facility] [address] [place] [address] [address], [place], [place] [id number] MD Thor Conde MD Phone: [phone]
[2022-07-24] MEDS: LACTATED RINGERS 1,000 ML 42 ML IV (07:48)
[2022-07-24 07:55] VITALS: BP 139/76; PULSE 77; RESP 18; TEMP 36.3; O2SAT 98; BMI 22.6
--- NOTE | 2022-07-24 08:32 | PM.PREOP ---
Pre-operative Note COVID-19 COVID-19 status: Negative Interval Note History & Physical reviewed/Exam performed by Physician: Yes Changes to H&P: No ASA Class (for procedural sedation): II
--- NOTE | 2022-07-24 08:33 | PM.OP.COLON ---
Operative Date/Time/Diagnoses Date of procedure: 07/24/22 Pre-op diagnosis: See indication and findings Procedure & Clinicians Study performed: Colonoscopy Indications: History of colon polyps and recent history of weight loss and loose stools Surgeon: Bossman Dee Procedure Notes Procedure in detail: After informed consent was obtained the patient was placed in left lateral decubitus position. The video colonoscope was introduced the rectum slowly advanced cecum and eventually passed into the terminal ileum. On slow withdrawal mucosa was carefully examined. The scope was removed. The patient tolerated procedure well. Blood loss none Complications none Sedation mac Findings 1. Normal terminal ileum 2. Normal colonoscopy to cecum. Random biopsies taken to rule out microscopic colitis. 3. No polyps noted. We will follow up with pathology results but after that she will need to follow up with Dr. Salinas for further recommendations. Given her age this should be her last colonoscopy.
[2022-07-24 09:07] VITALS: BP 118/65; PULSE 66; RESP 12; TEMP 36.1
[2022-07-24 09:12] VITALS: BP 135/69; PULSE 65; RESP 13; O2SAT 99
[2022-07-24 09:17] VITALS: BP 121/65; PULSE 67; RESP 15; O2SAT 96
[2022-07-24 09:22] VITALS: BP 129/66; PULSE 60; RESP 12; TEMP 36.2; O2SAT 99
[2022-07-24 09:33] VITALS: BP 128/66; PULSE 60; RESP 11; TEMP 36.2; O2SAT 99
== END 2022-07-24 09:49 | disposition home or self-care (01) ==
PROVIDERS: PCP Internal Medicine; Referring Provider Internal Medicine Gastroenterology; Visit Provider Internal Medicine Gastroenterology
PROC: 0DJD8ZZ Inspection of Lower Intestinal Tract, Via Natural or Artificial Opening Endoscopic (ICD-10-PCS; CPT 45378; principal; 2022-07-24 08:30)
DX: K52.831 Collagenous colitis (principal); Z86.010 Personal history of colon polyps
CPT/HCPCS: 45380; J2704

== ENCOUNTER → 2023-01-11 | Outpatient (CLI) | payer OTHER, SELFPAY ==
--- NOTE | 2023-01-11 | DI.MG.S_ITS ---
BILATERAL DIGITAL SCREENING MAMMOGRAM 3D/2D WITH CAD: 01/11/2023 CLINICAL: Routine screening. Family history of breast cancer. Comparison is made to exams dated: 12/14/2021 mammogram, 11/28/2020 mammogram, 04/27/2020 mammogram, and 10/27/2019 mammogram - [facility]. Both breasts are heterogeneously dense, which may obscure small masses (category c / 51-75% glandular tissue). Current study was also evaluated with a Computer Aided Detection (CAD) system. There are benign calcifications in both breasts. No significant masses, calcifications, or other findings are seen in either breast. There has been no significant interval change. IMPRESSION: BENIGN There is no mammographic evidence of malignancy. A 1 year screening mammogram is recommended. Based on the Tyrer Cuzick model (a risk assessment model) the patient's lifetime risk is 2.2% and her 10 year risk is 0.0%. According to the ACR, ACS, and NCCN guidelines, an annual breast MRI exam along with mammogram is recommended if the patient's lifetime risk is 20% or greater. This exam was interpreted at Station ID: [id number]. NOTE: For mammograms, a report in lay terms will be sent to the patient. Approximately 15% of breast malignancies will not be visualized mammographically. In the management of a palpable breast mass, a negative mammogram must not discourage biopsy of a clinically suspicious lesion. Electronically Signed By: Cory corley/michael:01/16/2023 07:50:44 letter sent: Normal Exam ACR BI-RADS Category 2: Benign Finding(s) 3342F
== END ==
LOC: MAMMO 10:34
PROVIDERS: PCP Internal Medicine; Referring Provider Internal Medicine; Visit Provider Internal Medicine
DX: Z12.31 Encounter for screening mammogram for malignant neoplasm of breast (principal); Z80.3 Family history of malignant neoplasm of breast
CPT/HCPCS: 77063; 77067

== ENCOUNTER → 2023-03-20 08:11 | Outpatient (CLI) | payer OTHER, SELFPAY | PROVIDERS: PCP Internal Medicine; Visit Provider Nurse Practitioner Family | DX: J02.9 Acute pharyngitis, unspecified; R05.9 Cough, unspecified | CPT/HCPCS: 87070 ==

== ENCOUNTER → 2023-04-09 09:47 | Outpatient (CLI) | payer OTHER, SELFPAY ==
--- NOTE | 2023-04-09 09:50 | DI.RAD.S_ITS ---
PROCEDURE: XR RIBS LT 2V INDICATIONS: RIB PAIN LEFT TECHNIQUE: 2 views of the ribs were acquired. COMPARISON: None. FINDINGS: Surgical changes and devices: None. Bones and chest wall: No fractures or dislocations. No suspicious bony lesions. Overlying soft tissues appear unremarkable. Lungs and pleura: The visualized lung appears clear. No pleural effusions or pneumothorax are visible. IMPRESSION: No displaced rib fracture. Dictated by: Shaun Gaitan M.D. on 04/09/2023 at 14:46 Approved by: Shaun Gaitan M.D. on 04/09/2023 at 14:47
== END ==
PROVIDERS: PCP Internal Medicine; Referring Provider Physician Assistant; Visit Provider Physician Assistant
DX: R07.81 Pleurodynia (principal); M62.838 Other muscle spasm
CPT/HCPCS: 71100

== ENCOUNTER → 2024-01-15 11:14 | Outpatient (CLI) | payer MEDICARE, SELFPAY ==
--- NOTE | 2024-01-15 11:16 | DI.MG.S_ITS ---
BILATERAL DIGITAL SCREENING MAMMOGRAM 3D/2D WITH CAD: 01/15/2024 CLINICAL: Routine screening. Family history of breast cancer. Comparison is made to exams dated: 01/11/2023 mammogram, 12/14/2021 mammogram, and 11/28/2020 mammogram - [facility]. The breasts are heterogeneously dense, which may obscure small masses (category c / 51-75% glandular tissue). Current study was also evaluated with a Computer Aided Detection (CAD) system. There are benign calcifications in both breasts. No significant masses, calcifications, or other findings are seen in either breast. There has been no significant interval change. IMPRESSION: BENIGN There is no mammographic evidence of malignancy. A 1 year screening mammogram is recommended. Based on the Tyrer Cuzick model (a risk assessment model) the patient's lifetime risk is 1.7% and her 10 year risk is 0.0%. According to the ACR, ACS, and NCCN guidelines, an annual breast MRI exam along with mammogram is recommended if the patient's lifetime risk is 20% or greater. This exam was interpreted at Station ID: [id number]. NOTE: For mammograms, a report in lay terms will be sent to the patient. Approximately 15% of breast malignancies will not be visualized mammographically. In the management of a palpable breast mass, a negative mammogram must not discourage biopsy of a clinically suspicious lesion. Electronically Signed By: Mark bobo/michael:01/15/2024 17:35:33 letter sent: Normal Exam ACR BI-RADS Category 2: Benign
== END ==
PROVIDERS: PCP Internal Medicine; Referring Provider Internal Medicine; Visit Provider Internal Medicine
DX: Z12.31 Encounter for screening mammogram for malignant neoplasm of breast (principal); R92.333 Mammographic heterogeneous density, bilateral breasts; Z80.3 Family history of malignant neoplasm of breast
CPT/HCPCS: 77063; 77067

== ENCOUNTER → 2025-01-06 18:46 | Outpatient (CLI) | payer MEDICARE, SELFPAY ==
--- NOTE | 2025-01-06 18:48 | DI.MRI.S_ITS ---
PROCEDURE: MR LUMBAR SPINE WO CON
== END ==
LOC: MRI 18:47
PROVIDERS: PCP Internal Medicine; Referring Provider Internal Medicine; Visit Provider Internal Medicine
DX: M54.42 Lumbago with sciatica, left side (principal); M47.816 Spondylosis without myelopathy or radiculopathy, lumbar region; M47.817 Spondylosis without myelopathy or radiculopathy, lumbosacral region; M48.061 Spinal stenosis, lumbar region without neurogenic claudication
CPT/HCPCS: 72148